=== PATIENT | female | born 1940 | race Caucasian/White ===

== ENCOUNTER 2018-05-18 11:44 | Inpatient (IN) | payer OTHER ==
[~2018-05-18] VITALS: Ht 152.4 cm; Wt 107.2 kg
--- NOTE | ~2018-05-18 | PR ---
[place], [place] PROGRESS NOTE NAME: CECI ZACARIAS [facility] #: [id number] UNIT #: [id number] ROOM: 412 DOCTOR: MEGAN RANGEL MD BIRTHDATE: [birth year] DOS: I saw the patient, Ceci Zacarias, today with Internal Medicine resident, Dr. Olson. I independently confirmed appropriate portions of his history and examination findings and I agree with the documentation listed above. The patient is a 77-year-old woman who does have risk factors for coronary artery disease and presents with atypical chest pain. Thus far, she has no objective findings to suggest the presence of an acute coronary event; however, given her risk factors, we will evaluate her further with a pharmacologic stress test. Further recommendations will depend upon the results of the stress test. I thank the hospitalist physicians for asking our advice regarding her care. MEGAN RANGEL MD CM:PNTRANS [id number] MEGAN RANGEL MD 05/22/18 2017 interface
--- NOTE | ~2018-05-18 | EKG ---
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
--- NOTE | ~2018-05-18 | EKG ---
[place], [place] ELECTROCARDIOGRAM REPORT NAME: YULISA HASKINS UNIT #: [id number] ROOM: 412 DOCTOR: JAY DRAFT REPORT BIRTHDATE: [birth year] [facility] Test Date: 2018-05-18 Test Time: 14:42:18 Pat Name: YULISA HASKINS Department: Room: 412 Gender: F [employer]: Nilam Wood : 1940 Requested By: BRIE COLMENARES Order Number: [id number] Reading MD: Keyon Phillip MD Measurements Intervals [place] Rate: 56 P: 124 CT: 193 QRS: 16 QRSD: 98 T: -2 QT: 453 QTc: 438 Interpretive Statements Sinus rhythm Baseline wander in lead(s) I,II,aVR No change from earlier ECG this date Electronically Signed On 05-19-2018 4:07:36 PST by Keyon Phillip MD CM:EKGRPT:ELECTROCARDIOGRAM REPORT [id number] BRIE THOMPSON DRAFT REPORT BRIE COLMENARES M.D.
--- NOTE | ~2018-05-18 | EKG ---
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
--- NOTE | ~2018-05-18 | CON ---
[place], [place] REPORT OF CONSULTATION NAME: YULISA HASKINS [facility] #: [id number] UNIT #: [id number] ROOM: 412 DOCTOR: MEGAN RANGEL MD BIRTHDATE: [birth year] DOS: 05/18/2018 CARDIOLOGY CONSULTATION REASON FOR CONSULTATION: Chest pain. HISTORY OF PRESENT ILLNESS: The patient is a 77-year-old woman who has no previously documented history of coronary artery disease. She does have a history of hypertension and states that a few years ago she did have a stress test at the [facility], which was reportedly normal. She awakened at about 5:00 this morning with a sharp brief pain in the center of her chest. She states that it occurred twice and then resolved spontaneously. She got up and began her day. Later, she did rest at a chair for a while. When she pushed herself to get out of the chair, she felt an aching in her right arm. This caused her some concerned and therefore she came to the Emergency Room. She denied any associated diaphoresis, nausea or dyspnea. She did take some aspirin this morning when she experienced the pains. Currently, she feels well. PAST HISTORY: Includes: 1. Essential hypertension. 2. Obstructive sleep apnea (not being treated). 3. History of deep venous thrombosis 20 years ago. 4. Osteoarthritis. 5. Gout. 6. Status post bilateral knee replacements. 7. History of cholecystectomy and partial hysterectomy. MEDICATIONS PRIOR TO ADMISSION: Allopurinol 300 mg daily, furosemide 20 mg daily, levothyroxine 150 mcg daily, metoprolol succinate 50 mg b.i.d., and sertraline 50 mg daily. ALLERGIES: SHE LISTED AN ALLERGY TO NAPROXEN. REVIEW OF SYSTEMS: The patient denies diplopia or loss of vision. She denies syncope. She does have a floaty sensation when she takes her glasses off, but denies syncope. She denies any focal weakness or falling. She denies nausea or vomiting. She denies fevers, chills, sweats or recent weight change. She denies orthopnea or PND. She denies hemoptysis or hematemesis. She denies excessive coughing. She denies any change in bowel or bladder habits. She denies blood in her stools or urine. She denies any recent unexplained weight loss or gain. She denies peripheral edema. She does have gouty arthritis. She denies heat or cold intolerance and denies polyuria or polydipsia. She denies any new skin rashes. The remainder of the review of systems is negative except as noted above. SOCIAL HISTORY: The patient lives alone. She does not smoke or consume significant amounts of alcohol. PHYSICAL EXAMINATION: GENERAL: The patient is a well-nourished, overweight white female who is awake, [place], [place] REPORT OF CONSULTATION NAME: YULISA HASKINS UNIT #: [id number] ROOM: [facility] DOCTOR: MEGAN RANGEL MD BIRTHDATE: [birth year] alert and oriented. VITAL SIGNS: Pulse is 68, regular. Blood pressure is 127/53. She is afebrile. She weighs 107.2 kg and has a body mass index of 46.2. HEENT: Normocephalic and atraumatic. Extraocular muscles are intact. Sclerae are clear. Pupils equal, round and react to light. The oral mucosa is moist. Tongue is midline. NECK: Supple. She has no jugular distention. Carotids are full. There are no bruits. She has no neck or supraclavicular masses. RESPIRATORY: Respirations are unlabored. Her chest is clear to auscultation and percussion. She has no presacral edema or chest wall tenderness. CARDIOVASCULAR: Her heart has a regular rhythm with a soft S4 gallop, but no S3 or murmur. Heart tones are distant. She has no precordial heave, lift or thrill and no chest wall tenderness. I could not reproduce her pain by palpation of her chest or arm. ABDOMEN: Obese, but otherwise benign, without masses, organomegaly or bruits. EXTREMITIES: Showed no clubbing, cyanosis or edema. There were no palpable cords or Homans sign. Pedal pulses were palpable in the feet bilaterally. LABORATORY DATA: I reviewed her electrocardiogram, which showed sinus rhythm. She does have left ventricular hypertrophy with secondary ST and T-wave changes, but no acute ST elevations. Serial troponins have been negative to date. Sodium is 137, potassium 4.5, chloride 103, CO2 of 28, BUN 24, creatinine 1.05. Hemoglobin is 13.2, hematocrit 40.6. There are 7700 white cells and 281,000 platelets present. IMPRESSIONS: 1. Atypical chest pain. The patient does have risk factors of high blood pressure and obesity. 2. History of high blood pressure, under control. 3. History of obstructive sleep apnea. The patient does not currently use a CPAP. PLAN: We will proceed with further investigations including a pharmacologic stress test and echocardiogram. Further recommendations will depend upon the results of testing. I thank the hospitalist physicians for asking our advice regarding the patient's evaluation and care. [place], [place] REPORT OF CONSULTATION NAME: YULISA HASKINS UNIT #: [id number] ROOM: 412 DOCTOR: MEGAN RANGEL MD BIRTHDATE: [birth year] MEGAN RANGEL MD CM:CONSTR:REPORT OF CONSULTATION 1747 05/19/18 0637 interface
[~2018-05-18 11:44] MED LIST: ALLOPURINOL300 MG PO; HYDROCODONE BIT1 T11 PO; LASIX20 MG PO; METOPROLOL SR50 MG PO; POTASSIUM20 MEQ PO; SYNTHROID,LEVO75 MCG PO
[2018-05-18 11:46] VITALS: BP 152/73
[2018-05-18 11:59] LABS: BASO # 0.1 10*3/uL (0.0-0.1); BASO % 0.8 % (0.0-1.0); EOS # 0.2 10*3/uL (0.0-0.4); EOS % 2.7 % (1.0-4.0); HEMATOCRIT 40.6 % (37.0-47.0); HEMOGLOBIN 13.2 g/dl (12.0-16.0); LYMPH # 2.2 10*3/uL (1.3-4.4); LYMPH % 27.8 % (27.0-41.0); MEAN CELL VOLUME 95.1 fl (81.0-99.0); MEAN CORPUSCULAR HGB 30.9 pg (27.0-31.0); MEAN CORPUSCULAR HGB CONC 32.5 g/dl (33.0-37.0); MEAN PLATELET VOLUME 9.7 fl (9.6-12.3); MONO # 0.5 10*3/uL (0.1-1.0); MONO % 5.9 % (3.0-9.0); NEUT # 4.8 10*3/uL (2.3-7.9); NEUT % 62.5 % (47.0-73.0); PLATELET COUNT AUTOMATED 281 10*3/uL (130-400); RED BLOOD COUNT 4.27 10*6/uL (4.10-5.10); RED CELL DISTRI WIDTH 15.8 % (0-14.5); WHITE BLOOD COUNT 7.7 10*3/uL (4.8-10.8)
[2018-05-18 12:10] LABS: ACT PARTIAL THROMBO TIME 29.4 SECONDS (20.8-31.5)
[2018-05-18 12:15] LABS: ALBUMIN 3.4 gm/dl (3.1-4.5); ALKALINE PHOSPHATASE 122 U/L (45-117); BUN 24 mg/dl (7-24); CHLORIDE 103 mmol/L (98-107); CREATININE 1.05 mg/dL (0.55-1.02); POTASSIUM 4.5 mmol/L (3.5-5.1); SGOT/AST 15 IU/L (3-35); SGPT/ALT 20 U/L (12-78); SODIUM 137 mmol/L (136-145); TOTAL PROTEIN 7.9 gm/dL (6.4-8.2)
[2018-05-18] MEDS ORDERED: ALLOPURINOL300 MG PO (12:19)
[2018-05-18] MEDS ORDERED: ZOLOFT50 MG PO (12:20)
[2018-05-18 12:28] LABS: TROPONIN I < 0.015 ng/ml (<0.045)
[2018-05-18 13:15] VITALS: BP 176/80
[2018-05-18 13:20] VITALS: BP 176/80
--- NOTE | 2018-05-18 14:34 | NUR ---
A 77, admitted to , under the services of TERESA Cohen DO with a diagnosis of chest pain. Chief complaint is chest pain. Patient arrived via stretcher from ER. Monitor applied. Initial assessment completed. Vital signs taken and recorded. TERESA COHEN DO notified of admission to the unit. Orders received. See assessment for past medical history, medications and allergies. Patient and/or family oriented to unit. [address] visitation policy reviewed. Medication reconciliation was completed with patient. Clothing/patient valuable form completed. NISH MACKENZIE
--- NOTE | 2018-05-18 14:35 | NUR ---
Notified Dr. Burns of med rec completed and updated.
--- NOTE | 2018-05-18 15:20 | NUR ---
Message left with Wendy in cardiology regarding consult for chest pain. Physician to follow up at bedside.
[2018-05-18 16:00] VITALS: BP 127/53
--- NOTE | 2018-05-18 16:14 | NUR ---
Per request of patients family I contacted [facility] to verify ABx treatment for UTI. Per pharmacist patient was prescribed Cipro 500mg Q12 hrs for 3 days. It was prescribed on 05-03 and patient picked medication up on 05-11-18.
--- NOTE | 2018-05-18 17:24 | NUR ---
Orthostatic blood pressures were negative and patient was asymptomatic.
[2018-05-18 20:00] VITALS: BP 115/51; BP 140/80
--- NOTE | 2018-05-18 22:20 | NUR ---
PATIENT COMPLAINING OF PRESSURE IN HER CHEST, BUT BELIEVES ITS JUST GAS. PATIENT IS BELCHING. STATES SHE ATE A SALAD FOR DINNER. VITALS WITHIN NORMAL LIMITS. PATIENT STATES MAYBE SOMETHING CARBONTED WILL HELP, CHRISTY MNI PROVIDED. CALL LIGHT WITHIN REACH WILL MONITOR
[2018-05-19] VITALS: BP 133/75
--- NOTE | 2018-05-19 02:15 | NUR ---
24 HR chart check completed.
[2018-05-19 06:19] LABS: BASO % 0.4 % (0.0-1.0); EOS # 0.2 10*3/uL (0.0-0.4); EOS % 2.5 % (1.0-4.0); HEMATOCRIT 42.8 % (37.0-47.0); HEMOGLOBIN 13.8 g/dl (12.0-16.0); LYMPH % 22.1 % (27.0-41.0); MEAN CELL VOLUME 94.9 fl (81.0-99.0); MEAN CORPUSCULAR HGB 30.6 pg (27.0-31.0); MEAN CORPUSCULAR HGB CONC 32.2 g/dl (33.0-37.0); MEAN PLATELET VOLUME 10.3 fl (9.6-12.3); MONO # 0.6 10*3/uL (0.1-1.0); MONO % 6.1 % (3.0-9.0); NEUT # 6.3 10*3/uL (2.3-7.9); NEUT % 68.6 % (47.0-73.0); PLATELET COUNT AUTOMATED 289 10*3/uL (130-400); RED BLOOD COUNT 4.51 10*6/uL (4.10-5.10); RED CELL DISTRI WIDTH 15.6 % (0-14.5); WHITE BLOOD COUNT 9.2 10*3/uL (4.8-10.8)
[2018-05-19 06:45] LABS: ALBUMIN 3.3 gm/dl (3.1-4.5); ALKALINE PHOSPHATASE 120 U/L (45-117); BUN 22 mg/dl (7-24); CHLORIDE 103 mmol/L (98-107); CHOLESTEROL 168 mg/dL (<200); CREATININE 0.96 mg/dL (0.55-1.02); FREE T4 1.04 ng/dl (0.76-1.46); HDL CHOLESTEROL 54 mg/dl (40-60); LDL CHOLESTEROL 89 mg/dL (9-159); PHOSPHOROUS 3.6 mg/dL (2.5-4.9); POTASSIUM 4.6 mmol/L (3.5-5.1); SGOT/AST 15 IU/L (3-35); SGPT/ALT 19 U/L (12-78); SODIUM 138 mmol/L (136-145); TOTAL PROTEIN 8.1 gm/dL (6.4-8.2); TRIGLYCERIDES 124 mg/dl (<150); VLDL CHOLESTEROL 25 mg/dL (6-40)
[2018-05-19 06:50] LABS: THYROID STIM HORMONE (HS) 0.947 uIU/ml (0.358-4.75)
[2018-05-19 07:17] LABS: VITAMIN D, 25-HYDROXY 38.1 ng/mL (30-100)
[2018-05-19 08:00] VITALS: BP 130/78
--- NOTE | 2018-05-19 09:00 | NUR ---
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 Patient states lives at home with son. There are few steps in the home. Physician: yanick redd Pharmacy: mail Home health services: none Patient's level of ADLs: INDEPENDENT Patient has working utilities: all working DME: none Follow-up physician's appointment after d/c: will be made by hospitalist nurse director upon discharge Does patient want to access PORTAL?: no Discharge plan discussed with patient, patient states she lives at home with her son, she is independent in adls and ambulation, drives, patient states she will be going home when able and denies any home needs. SUDHIR SHINE
--- NOTE | 2018-05-19 10:41 | NUR ---
INFORMED CONSENT SIGNED FOR LEXISCAN STRESS TEST WITH DR. RANGEL. RESTING EKG NSR, HR 70, BP 188/70. PULSE OX 97% AND LUNGS CLEAR. COMPLETED ONE MINUTE OF LEXISCAN PROTOCOL RECEIVING LEXISCAN 0.4MG OVER 10 SECONDS. NO ARRHYTHMIAS OR ST CHANGES NOTED. PT C/O BEING HOT AND FEELING DIFFERENT. LAST RECOVERY HR 84, BP 112/68. WAITING NUCLEAR SCANNING IN STABLE CONDITION.
[2018-05-19 12:00] VITALS: BP 131/79
--- NOTE | 2018-05-19 15:13 | NUR ---
PHYSICAL THERAPY PAtient reports she is 100 % (I) and has no PT skills/needs. D/c PT at this time. Thank you for this referral. Ana Wilcox,PT
--- NOTE | 2018-05-19 15:17 | NUR ---
Occupational Therapy evaluation offered this date. Patient insists that she is independent in ADLs, functional mobility and does not require therapy and she is waiting to go home. Discharge OT referral per patient's refusal of services. Thank you. Laxmi Gregorio OTR/Erin
[2018-05-19 16:00] VITALS: BP 156/76
--- NOTE | 2018-05-19 18:39 | NUR ---
DISCHARGE INSTRUCTIONS REVIEWED WITH PT. PT VERBALIZES UNDERSTANDING. DISCHARGED HOME IN STABLE CONDITION
== END 2018-05-19 18:39 | disposition home or self-care (01) | DRG 392 ==
LOC: ED 11:44 → 4E 12:35 → EDHOLD 12:35 → 4E 12:47
PROVIDERS: Emergency Medicine; Internal Medicine Nephrology; ADMIT Internal Medicine
PROC: 4A02XM4 Measurement of Cardiac Total Activity, External Approach (ICD-10-PCS; principal; 2018-05-19)
PROC: 3E073KZ Introduction of Other Diagnostic Substance into Coronary Artery, Percutaneous Approach (ICD-10-PCS; principal; 2018-05-19)
DX: K21.9 Gastro-esophageal reflux disease without esophagitis (principal); Z68.42 Body mass index [BMI] 45.0-49.9, adult; R07.89 Other chest pain; E83.41 Hypermagnesemia; E66.01 Morbid (severe) obesity due to excess calories; M1A.9XX0 Chronic gout, unspecified, without tophus (tophi); N18.3 Chronic kidney disease, stage 3 (moderate); R42 Dizziness and giddiness; R74.8 Abnormal levels of other serum enzymes; M19.90 Unspecified osteoarthritis, unspecified site; I12.9 Hypertensive chronic kidney disease with stage 1 through stage 4 chronic kidney disease, or unspecified chronic kidney disease; Z96.653 Presence of artificial knee joint, bilateral; G47.33 Obstructive sleep apnea (adult) (pediatric); M79.604 Pain in right leg; M79.605 Pain in left leg; I73.9 Peripheral vascular disease, unspecified; Z88.6 Allergy status to analgesic agent; Z90.49 Acquired absence of other specified parts of digestive tract; Z90.710 Acquired absence of both cervix and uterus; Z86.718 Personal history of other venous thrombosis and embolism; Z82.3 Family history of stroke; Z83.6 Family history of other diseases of the respiratory system; Z79.899 Other long term (current) drug therapy

== ENCOUNTER → 2021-06-18 | Outpatient (CLI) | payer OTHER ==
[~2021-06-18] MED LIST changes: +ZOLOFT50 MG PO
[2021-06-18 09:44] LABS: BASO % 0.4 % (0.0-1.0); EOS # 0.2 10*3/uL (0.0-0.4); EOS % 2.9 % (1.0-4.0); HEMATOCRIT 41.4 % (37.0-47.0); LYMPH # 1.9 10*3/uL (1.3-4.4); LYMPH % 25.6 % (27.0-41.0); MEAN CORPUSCULAR HGB 29.1 pg (27.0-31.0); MEAN CORPUSCULAR HGB CONC 31.6 g/dl (33.0-37.0); MEAN PLATELET VOLUME 9.7 fl (9.6-12.3); MONO # 0.4 10*3/uL (0.1-1.0); MONO % 5.8 % (3.0-9.0); NEUT # 4.9 10*3/uL (2.3-7.9); PLATELET COUNT AUTOMATED 313 10*3/uL (130-400); RED CELL DISTRI WIDTH 15.7 % (0-14.5); WHITE BLOOD COUNT 7.5 10*3/uL (4.8-10.8)
[2021-06-18 10:30] LABS: POTASSIUM 4.2 mmol/L (3.5-5.1)
[2021-06-18 10:38] LABS: CREATININE 1.18 mg/dL (0.55-1.02); THYROID STIM HORMONE (HS) 0.303 uIU/ml (0.358-4.75); THYROXINE (T4) TOTAL 10.1 ug/dl (4.8-13.9)
[2021-06-18 11:48] LABS: VITAMIN D, 25-HYDROXY 38.3 ng/mL (30-100)
== END | disposition home or self-care (01) ==
LOC: LAB 09:08
PROVIDERS: ATTEND Internal Medicine
DX: M25.562 Pain in left knee (principal); M25.552 Pain in left hip; Z13.1 Encounter for screening for diabetes mellitus; Z13.21 Encounter for screening for nutritional disorder; Z13.220 Encounter for screening for lipoid disorders; Z00.00 Encounter for general adult medical examination without abnormal findings; M06.9 Rheumatoid arthritis, unspecified

== ENCOUNTER → 2021-07-17 | Outpatient (CLI) | payer OTHER | END | disposition home or self-care (01) | LOC: RAD 06-29 13:30 → US 07-04 07:30 → RAD 12:30 → US 14:00 | PROVIDERS: ATTEND Internal Medicine | DX: M85.88 Other specified disorders of bone density and structure, other site (principal); N28.1 Cyst of kidney, acquired ==

== ENCOUNTER → 2022-04-23 | Outpatient (CLI) | payer OTHER ==
[2022-04-23 10:24] LABS: BUN 25 mg/dl (9-23); CHLORIDE 101 mmol/L (98-107); POTASSIUM 4.9 mmol/L (3.4-5.1)
== END | disposition home or self-care (01) ==
LOC: LAB 09:21
PROVIDERS: ATTEND Internal Medicine
DX: E87.5 Hyperkalemia (principal)

== ENCOUNTER → 2022-08-02 | Outpatient (CLI) | payer OTHER | END | disposition home or self-care (01) | LOC: LAB 09:26 → CT 10:00 | PROVIDERS: ATTEND Internal Medicine | DX: N26.1 Atrophy of kidney (terminal) (principal); N28.1 Cyst of kidney, acquired; K59.00 Constipation, unspecified; M51.36 Other intervertebral disc degeneration, lumbar region; N30.90 Cystitis, unspecified without hematuria; M48.061 Spinal stenosis, lumbar region without neurogenic claudication; Z90.710 Acquired absence of both cervix and uterus ==

== ENCOUNTER → 2023-09-23 | Outpatient (CLI) | payer OTHER | END | disposition home or self-care (01) | LOC: CARD 12:17 | PROVIDERS: ATTEND Internal Medicine | DX: R06.02 Shortness of breath (principal) ==